=== PATIENT | female | born 1950 | race Two or more races ===

== ENCOUNTER 2024-05-31 09:34 | Outpatient (AMB) | payer MEDICARE, MEDICAID, SELFPAY ==
[2024-05-31 09:42] VITALS: BP 145/74; PULSE 86; RESP 19; TEMP 36.3; O2SAT 96; BMI 32.3
--- NOTE | 2024-05-31 09:42 | ORTHONT_ITS ---
Vital signs 05/31/24 09:42 Height 1.52 m Height Method Stated Weight 75.013 kg Weight Measurement Method Standing Scale BMI 32.3 BP 145/74 H Blood Pressure Source Automatic Cuff Blood Pressure Location Right Upper Arm Position Sitting Respiration 19 Pulse 86 Pulse Source Monitor Temp 97.3 F Temp Source Temporal Artery Scan Pulse Oximetry (%) 96 Oxygen Delivery Method Room Air Med/Allergies Allergies & Medications Allergies No Known Allergies Allergy (Verified 05/31/24 09:43) Medication Reconciliation Unobtainable 05/31/24 [History Confirmed 05/31/24] Subjective Visit Visit for: new patient and knee (RIGHT) Immunization / Flu Flu Vaccine in the Last 12 Months: Yes Flu Vaccine Exclusion Criteria: Already Received History of Present Illness Chief complaint: RIGHT KNEE PAIN Cheryl is a pleasant 73-year-old female who presents today for evaluation of her right knee. She had a left knee replacement recently and did well from that. She has tried multiple injections in the right knee as well as physical therapy and several anti-inflammatories. She has persistent pain. Personal History Red flag PMH: smoker Pain Pain level (0-10): 8 Pain duration: CONSTANT Pain location: inside (medial) and outside (lateral) Pain quality: sharp, dull and aching Pain timing: night, increases with activity and stairs Associated signs & symptoms: numbness Ambulatory data Ambulatory device: walker Treatments Improvement with previous injections: No Improvement with PT: No Improvement with NSAIDS: no Review of Systems Review of Systems: All systems negative unless otherwise noted in HPI. Exam Exam Patient is in no acute distress and is cooperative with the examination today. Breathing is nonlabored. Patient has a normal mood and affect. Bilateral extremities were evaluated and demonstrates sensation intact to light touch. Palpable pedal pulses are present. No significant edema is present. Bilateral hips were examined. The patient has no pain with log roll of the hips. Internal rotation to 30 degrees and external rotation to 30 degrees is painless. Negative FADIR. Left knee incision is clean dry and intact The right knee was also examined. The right knee is in [varus] alignment. Range of motion from [0-115] degrees. Knee is stable to varus and valgus as well as AP translation with <5mm. Patient has a [negative] McMurrays. There is [no] pain with patellofemoral compression and [no] crepitus noted. The knee is [tender] to palpation [medially]. X-rays from [place] [facility] reviewed today. This demonstrates complete joint space obliteration medially with osteophytes and varus deformity Assessment and Plan Problem List (1) Degenerative arthritis of knee, bilateral: Status: Acute Plan: Patient is a 73-year-old female with a right greater than left knee pain. She has Significant right knee pain and right knee arthritis. She has failed conservative treatment occluding multiple injections, formal physical therapy, and several anti-inflammatories. We thus thus discussed a right total knee replacement is a reasonable option. The pain is affecting her quality life and happiness The nature and purpose of the total knee replacement, alternative method(s) of treatment, the material risks involved, and the possibility of complications were fully explained to the patient. The patient does NOT have any of the following contraindications to TKA: - Active infection of the knee joint, OR - Active systemic bacteremia, OR - Active skin infection or open wound at surgical site, OR - Neuropathic arthritis, OR - Severe, rapidly progressive neurological disease, OR - Severe medical condition that makes risks of surgery outweigh the potential benefit The patient was told the most common risks and complications associated with a total knee replacement include, but are not limited to: blood clots in the leg, fatal pulmonary embolism, dislocation of the prosthesis, intraoperative and postoperative fractures of the femur or tibia, infection, failure of the prosthesis or grafting materials, complications from anesthesia, reactions to blood transfusions, postoperative leg length inequality, instability of the knee replacement, nerve damage or injury, vascular injury, delayed wound healing, infection, other injury or even . In addition, there are risks associated with anesthesia given during this operation. Also, the patient was told that after undergoing a total knee replacement there may still be persistent pain or disability. The patient was informed that the success of this operation in part depends upon the mechanical devices which are going to be implanted and that these devices can fail or malfunction, and may need to be repaired or replaced and there are no guarantees as to the longevity of this device or its parts and that it or its parts could fail prematurely. The patient was also notified that during the course of surgery, there may be a need to use bone graft from donors, and that any bone graft used will be carefully screened for communicable diseases, including AIDS, hepatitis, Jose-Creutzfeldt, or other diseases, but despite the screening procedures, there is a small chance that they could contract one of these diseases. Finally, the patient was asked to follow completely and fully with all advice and recommended treatments, and that recovery and ultimate outcome are affected by their compliance with recommended treatment. We discussed the risks, benefits and treatment alternatives, and the patient is interested in proceeding with surgery. We will try to set this up as expeditiously as possible. Advanced Care Planning Discussion Advance care planning discussed with:: patient Office Procedures GNS Level of Care Nursing/Assessment Patient Status: Initial/New Patient Nursing Assessment/Reassesment: Medication Reconciliation and Update PMH in EMR Coordination of Care: Complex Care and Chronic Disease 1-5, Education Complex Pt/Fam, Consent,records obtained, informed consent, 1 Ins Authorization, Lab and Imaging orders, Results/Orders obtained and Staff clarify orders Special Needs: Language special needs New Patient Charge New Patient Point Assignment: 1109 New Patient Point Charge: FUNERAL PRE ARRANGEMENT COUNSELOR Level 3 ([id number]) Past Medical History Past Medical History Have you ever been diagnosed with any of the following: Cardiology Problems Hypertension: Yes Respiratory Problems Smoking: Yes Smoking Exposure: Yes
== END 2024-05-31 10:02 | disposition home or self-care (01) ==
PROVIDERS: PCP Physician Assistant; Referring Provider Physician Assistant; Supervising Provider Orthopaedic Surgery Adult Reconstructive Orthopaedic Surgery; Visit Provider Orthopaedic Surgery Adult Reconstructive Orthopaedic Surgery
DX: M17.0 Bilateral primary osteoarthritis of knee (principal); M25.561 Pain in right knee; I10 Essential (primary) hypertension
CPT/HCPCS: 99203; G0463

== ENCOUNTER 2024-08-02 14:26 | Outpatient (AMB) | payer MEDICARE, MEDICAID, SELFPAY ==
[2024-08-02 14:57] VITALS: BP 126/76; PULSE 88; RESP 18; TEMP 36.4; O2SAT 96; BMI 31.8
--- NOTE | 2024-08-02 14:57 | PD.ORTHCLVIS ---
Vital signs 08/02/24 14:57 Height 1.52 m Height Method Stated Weight 73.737 kg Weight Measurement Method Standing Scale BMI 31.8 BP 126/76 Blood Pressure Source Automatic Cuff Blood Pressure Location Right Upper Arm Position Sitting Respiration 18 Pulse 88 Pulse Source Monitor Temp 97.6 F Temp Source Temporal Artery Scan Pulse Oximetry (%) 96 Oxygen Delivery Method Room Air Med/Allergies Allergies & Medications Allergies No Known Allergies Allergy (Verified 08/02/24 14:58) Medication Reconciliation Unobtainable 05/31/24 [History Confirmed 08/02/24] Exam Exam Patient is in no acute distress and is cooperative with the examination today. Breathing is nonlabored. Patient has a normal mood and affect. Bilateral extremities were evaluated and demonstrates sensation intact to light touch. Palpable pedal pulses are present. No significant edema is present. Bilateral hips were examined. The patient has no pain with log roll of the hips. Internal rotation to 30 degrees and external rotation to 30 degrees is painless. Negative FADIR. Left knee incision is clean dry and intact The right knee was also examined. The right knee is in [varus] alignment. Range of motion from [0-115] degrees. Knee is stable to varus and valgus as well as AP translation with <5mm. Patient has a [negative] McMurrays. There is [no] pain with patellofemoral compression and [no] crepitus noted. The knee is [tender] to palpation [medially]. X-rays from [place] [facility] reviewed today. This demonstrates complete joint space obliteration medially with osteophytes and varus deformity Assessment and Plan Problem List (1) Degenerative arthritis of knee, bilateral: Status: Acute Plan: Patient is a 73-year-old female with a right greater than left knee pain. She has Significant right knee pain and right knee arthritis. She has failed conservative treatment occluding multiple injections, formal physical therapy, and several anti-inflammatories. We thus thus discussed a right total knee replacement is a reasonable option. The pain is affecting her quality life and happiness The nature and purpose of the total knee replacement, alternative method(s) of treatment, the material risks involved, and the possibility of complications were fully explained to the patient. The patient does NOT have any of the following contraindications to TKA: - Active infection of the knee joint, OR - Active systemic bacteremia, OR - Active skin infection or open wound at surgical site, OR - Neuropathic arthritis, OR - Severe, rapidly progressive neurological disease, OR - Severe medical condition that makes risks of surgery outweigh the potential benefit The patient was told the most common risks and complications associated with a total knee replacement include, but are not limited to: blood clots in the leg, fatal pulmonary embolism, dislocation of the prosthesis, intraoperative and postoperative fractures of the femur or tibia, infection, failure of the prosthesis or grafting materials, complications from anesthesia, reactions to blood transfusions, postoperative leg length inequality, instability of the knee replacement, nerve damage or injury, vascular injury, delayed wound healing, infection, other injury or even . In addition, there are risks associated with anesthesia given during this operation. Also, the patient was told that after undergoing a total knee replacement there may still be persistent pain or disability. The patient was informed that the success of this operation in part depends upon the mechanical devices which are going to be implanted and that these devices can fail or malfunction, and may need to be repaired or replaced and there are no guarantees as to the longevity of this device or its parts and that it or its parts could fail prematurely. The patient was also notified that during the course of surgery, there may be a need to use bone graft from donors, and that any bone graft used will be carefully screened for communicable diseases, including AIDS, hepatitis, Jose-Creutzfeldt, or other diseases, but despite the screening procedures, there is a small chance that they could contract one of these diseases. Finally, the patient was asked to follow completely and fully with all advice and recommended treatments, and that recovery and ultimate outcome are affected by their compliance with recommended treatment. We discussed the risks, benefits and treatment alternatives, and the patient is interested in proceeding with surgery. We will try to set this up as expeditiously as possible. Advanced Care Planning Discussion Advance care planning discussed with:: patient Office Procedures GNS Level of Care Nursing/Assessment Patient Status: Established Patient Nursing Assessment/Reassesment: Medication Reconciliation, Update PMH in EMR and Vital Signs Coordination of Care: Complex Care and Chronic Disease 1-5, Education Complex Pt/Fam, Consent,records obtained, informed consent, Results/Orders obtained and Staff clarify orders Special Needs: Language special needs Established Patient Charge Established Patient Point Assignment: 95 Established Patient Point Charge: Level 3 (80-115) MD Intake Visit Data Collection New Patient or Established: Established Patient (seen at [facility] within 3 years) Reason for Visit:: PRE-OPT RT TKA Seen by Clinical Staff ONLY (RN/MA): No Verbal consent obtained for Telemed visit?: No Account Development Specialist Required: No PCP or OBGYN visit in last 3 months: Yes Hx Now: No Do You Feel Safe at Home: Yes Authorities Contacted: N/A Questionairres Past Medical History Past Medical History Have you ever been diagnosed with any of the following: Cardiology Problems Hypertension: Yes Respiratory Problems Smoking: Yes Smoking Exposure: Yes Subjective Visit Visit for: follow up visit and knee Immunization / Flu Flu Vaccine in the Last 12 Months: No Flu Vaccine Exclusion Criteria: No Exclusion Criteria History of Present Illness Chief complaint: PRE-OPT RT TKA Date of 1st surgery (if applicable): 08/08/24 Cheryl is a pleasant 73-year-old female who presents today for evaluation of her right knee. She had a left knee replacement recently and did well from that. She has tried multiple injections in the right knee as well as physical therapy and several anti-inflammatories. She has persistent pain. She is scheduled for surgery in a week Pain Pain level (0-10): 6 Pain duration: CONSTANT Pain location: inside (medial) Pain quality: sharp, dull and aching Pain timing: night, increases with activity and stairs Associated signs & symptoms: numbness, weakness and stiffness Ambulatory data Ambulatory device: walker Treatments Improvement with previous injections: No Improvement with PT: No Improvement with NSAIDS: n/a Review of Systems Review of Systems: All systems negative unless otherwise noted in HPI.
== END 2024-08-02 15:32 | disposition home or self-care (01) ==
LOC: HODSRG 14:26
PROVIDERS: PCP Physician Assistant; Referring Provider Physician Assistant; Supervising Provider Orthopaedic Surgery Adult Reconstructive Orthopaedic Surgery; Visit Provider Orthopaedic Surgery Adult Reconstructive Orthopaedic Surgery
DX: M17.0 Bilateral primary osteoarthritis of knee (principal); M25.562 Pain in left knee; M25.561 Pain in right knee; Z96.652 Presence of left artificial knee joint; I10 Essential (primary) hypertension
CPT/HCPCS: 73700; 99213; G0463

== ENCOUNTER → 2024-08-02 | Outpatient (CLI) | payer MEDICARE, MEDICAID, SELFPAY ==
--- NOTE | 2024-08-02 15:00 | XR_ITS ---
Examination: CT right lower extremity, without contrast. 2-D sagittal reconstructions. 2-D coronal reconstructions. 3-D reconstructions. Date and time of exam:August 02, 2024 1613 hours INDICATIONS: Right knee pain one year, diagnosis primary osteoarthritis CTDI: vol (mGy):11.2 DLP: (mGycm):813 Technique: Multiple 1.25 mm axial sections of the right lower extremity without intravenous contrast have been obtained. 2-D sagittal and coronal reconstructions have been obtained. 3-D reconstructions have been obtained. Low dose protocols were performed. One or more of the following dose reduction techniques were used; automated exposure control, adjustment of the mA and/or KV according to patient size, use of iterative reconstruction technique. Findings: Severe osteopenia Moderate narrowing right hip joint No fracture or dislocation No avascular necrosis Advanced narrowing medial joint space right knee Significant osteoarthritis patellofemoral and lateral joint spaces right knee No fracture IMPRESSION: Advanced tricompartment osteoarthritis right knee, including severe narrowing medial joint space
== END | disposition home or self-care (01) ==
PROVIDERS: Referring Provider Orthopaedic Surgery Adult Reconstructive Orthopaedic Surgery; Visit Provider Orthopaedic Surgery Adult Reconstructive Orthopaedic Surgery
DX: M17.11 Unilateral primary osteoarthritis, right knee (principal); M25.861 Other specified joint disorders, right knee
CPT/HCPCS: 73700

== ENCOUNTER 2024-08-08 05:49 | Day surgery (SDC) | payer MEDICARE, MEDICAID, SELFPAY ==
--- NOTE | 2024-08-04 06:00 | EKG_ITS ---
[facility] Test Date: 2024-08-04 Pat Name: DE HUDSON Department: Room: - Gender: Female Space Physicist: FREDI : 1950 Requested By: Bhavik Jc Order Number: [id number] Reading MD: Bhavik Jc Measurements Intervals [place] Rate: 78 P: 49 LA: 147 QRS: -53 QRSD: 148 T: 99 QT: 436 QTc: 497 Interpretive Statements SINUS RHYTHM MARKED LEFT AXIS DEVIATION LEFT BUNDLE BRANCH BLOCK No previous ECG available for comparison /[id number]
[2024-08-04 08:33] VITALS: BMI 28.0
[2024-08-04 09:53] LABS: Basophils # (Auto) 0.1 Thou/mm3 (0.0-0.2); Basophils % (Auto) 2 % (0-2.5); Eosinophils # (Auto) 0.8 Thou/mm3 (0.0-0.5); Eosinophils % (Auto) 11 % (0-10); Hematocrit 37.1 % (36.0-46.0); Hemoglobin 12.8 g/dL (12.0-16.0); Immature Granulocytes % (Auto) 0 % (0-0); Immature Granulocytes Auto 0.01 Thou/mm3 (0.00-0.00); Lymphocytes # (Auto) 2.5 Thou/mm3 (1.0-4.8); Lymphocytes % (Auto) 36 % (10-50); Mean Corpuscular HGB Conc 34.5 g/dl (31.0-37.0); Mean Corpuscular Hemoglobin 30.7 pg (25.0-35.0); Mean Corpuscular Volume 89 fL (80-100); Monocytes # (Auto) 0.7 Thou/mm3 (0.0-0.8); Monocytes % (Auto) 10 % (0-12); Neutrophils # (Auto) 2.9 Thou/mm3 (1.8-7.7); Neutrophils % (Auto) 41 % (37-80); Nucleated Red Blood Cell % 0 /100 WBC (0); Platelet Count 373 Thou/mm3 (140-440); RDW Standard Deviation 52.1 fL (36.4-46.3); Red Blood Count 4.17 Miln/mm3 (4.00-5.20); White Blood Count 7.1 Thou/mm3 (3.6-11.0)
[2024-08-04 10:09] LABS: INR 0.9 (0.9-1.3); Prothrombin Time 10.3 Seconds (9.0-12.2)
[2024-08-04 10:12] LABS: Alanine Aminotransferase 13 U/L (10-49); Albumin, Serum 4.8 gm/dL (3.4-4.8); Albumin/Globulin Ratio 1.7 (1.2-2.2); Alkaline Phosphatase 116 U/L (46-116); Anion Gap 8 (7-16); Aspartate Amino Transferase 15 U/L (0-34); BUN/Creatinine Ratio 14 Ratio (12-20); Bilirubin,Total 0.5 mg/dL (0.3-1.2); Blood Urea Nitrogen 11 mg/dL (9-23); Calcium 9.8 mg/dL (8.3-10.6); Calcium (Corrected) 9.8 mg/dL (8.5-10.1); Carbon Dioxide 27.2 mMol/L (20.0-31.0); Chloride 102 mMol/L (98-107); Creatinine (Component) 0.8 mg/dL (0.6-1.3); Estimated Creatinine Clearance 60.9 mL/min (>60); Globulin 2.9 gm/dL (2.3-3.5); Glucose 82 mg/dL (74-106); Osmolality,Calculated 272 (275-295); Potassium 3.4 mMol/L (3.4-5.1); Sodium 137 mMol/L (136-145); Total Protein 7.7 gm/dL (5.7-8.2); eGFR > 60 See Note
--- NOTE | 2024-08-04 15:03 | SUR.PREOP ---
Cardiac records reviewed with Dr Jc.
[2024-08-08] VITALS (20 sets, daily range): BP systolic 107–143; BP diastolic 52–86; PULSE 66–96; RESP 12–19; TEMP 36.2–36.7; O2SAT 95–100; BMI 27.9
[2024-08-08] MEDS: ACETAMINOPHEN 325 MG TABLET 650 MG PO (06:17)
[2024-08-08] MEDS: MELOXICAM 7.5 MG TABLET PO ×2 (06:18→20:04)
[2024-08-08] MEDS: PREGABALIN 75 MG CAPSULE PO (06:18)
[2024-08-08] MEDS: RINGERS LACTATED 1000 ML 1,000 ML 20 ML IV (06:19)
--- NOTE | 2024-08-08 09:07 | ESOP_ITS ---
Date of Procedure 08/08/24 Pre Op Diagnosis right knee osteoarthritis Post Op Diagnosis right knee osteoarthritis Procedure right total knee replacement Findings full thickness cartilage loss and osteophytes Procedure Description Indication: The patient is a 73 year old who has a long history of right knee pain. X-rays show degenerative arthritis involving the knee. Over the past several years the patient has had increasing pain, progressive limitation in function. He has failed conservative measures including activity modification, physical therapy, injections, anti-inflammatories, and assistive devices. After a lengthy discussion of the risks and benefits, the patient presents now for total knee replacement. The nature and purpose of the total knee replacement, alternative method(s) of treatment, the material risks involved, and the possibility of complications were fully explained to the patient. The patient was told the most common risks and complications associated with a total knee replacement include, but are not limited to blood clots in the leg, fatal pulmonary embolism, dislocation of the prosthesis, intraoperative and postoperative fractures of the femur or tibia, infection, failure of the prosthesis or grafting materials, complications from anesthesia, reactions to blood transfusions, postoperative leg length inequality, instability of the knee replacement, nerve damage or injury, vascular injury, delayed wound healing, infections, other injury or even . In addition, there are risks associated with anesthesia given during this operation, temporary or permanent numbness on the skin lateral to the incision can be a complication unique to total knee surgery, and kneeling can be painful after knee replacement surgery. Also, the patient was told that after undergoing a total knee replacement there may still be pain or disability. We discussed with the patient that we will be using a robot-assisted technology. We discussed that there is a possibility of converting to manual instrumentation. The patient was informed that the success of this operation in part depends upon the mechanical devices which are going to be implanted and that these devices can fail or malfunction, and may need to be repaired or replaced and there are no guarantees as to the longevity of this device or its part and that it or its parts could fail prematurely. Finally, the patient was asked to follow completely and fully with all advice and recommended treatments, and that recovery and ultimate outcome are affected by their compliance with recommended treatment. Surgical technique: Patient was marked and consented in the pre-operative area. The patient was brought to the operating room and placed on the operating table in a supine position. Prior to positioning, a timeout procedure was performed between the surgeon, the anesthesiologist, and the nursing staff where the patient and the operative side were identified and confirmed. After adequate general anesthetic was obtained, the right lower extremity was prepped and draped in the usual sterile fashion. A weight based dose of Cefazolin were administered within 1 hour prior to incision. The robot was preregistered and calirated before the incision. The extremity was exsanguinated with an esmarch badge and tourniquet inflated to 250mmHg. A midline incision was made. A median parapatellar arthrotomy was made. The patella was subluxed laterally. A medial release was performed to expose the medial tibia. His femoral and tibial pins were placed through an intra incisional manner for both cases. Every effort was made to ensure that the distalmost aspect of the pin was hung in the second cortex. The arrays were then tightened several times to ensure that it was fixed for the remainder of the case. Both femoral and tibial checkpoints were then placed. We then went through the registration process of the bone. We then assessed the knee deformity and attempted to correct it. We also used the robot to aid in judging laxity in both extension and flexion. Final based on laxity and alignment we changed the preoperative assessment to obtain proper proper implant positioning and to correct deformity. Attention was then placed to the tibia. We made a tibial cut using the robot ensuring that both the MCL and the patella tendon were protected with retractors. We then went to the femur and made the posterior cut followed by the anterior cut and the anterior chamfer. The bone was then removed and we made a distal femur cut and a posterior chamfer cut. We verified all cuts. A trial reduction was performed with a size [3] femoral component and a size 3 keeled tibial component. The patella tracked centrally, and no lateral retinacular release was necessary. The trial implants were removed. The arrays, pins, and checkpoints were all removed. We performed a verification that all pins were removed. The cut bone surfaces were lavaged. A size [3] right femoral component, a size 3 keeled tibial component were impacted into position. The knee was felt to be well balanced in the sagittal and coronal plane. The final 3x10 mm cruciate- substituting articular insert was impacted into the tibial tray. The knee was brought out to full extension, flexed up to 120 degrees. It was stable to varus and valgus stress and appropriately balanced in flexion and extension. The wounds were copiously irrigated following deflation of tourniquet. The medial retinaculum was reapproximated with #1 vicryl and quill. The subcutaneous tissues were closed with 0 and 2-0 interrupted Vicryl. The skin was closed with 3-0 Monofilament V loc suture. A sterile dressing was applied. The patient was transferred to a bed and brought to recovery in stable condition. The patient tolerated the procedure well. There were no intraoperative complications. Sponge and needle counts were correct times 2. As the attending surgeon, I attest I was present and performed the entire operation. Grafts/Implants Size 3 CR Femur Size 3 Tibia 10mm poly CS Anesthesia GETA Implants isabel triathlon Pathology / specimen None Pathology comment: none Estimated Blood Loss 150 Surgeon Richard Mariscal MD Surgical Staff Operation Date: 08/08/24 07:30 Case Staff Anesthesiologist: Bhavik Jc RNaccount manager sales representative: Jenna Live
--- NOTE | 2024-08-08 09:13 | XR_ITS ---
Examination: Right knee 2 views TECHNIQUE: AP lateral right knee 2 views Exam date and time: August 08, 2024 1003 hours INDICATIONS: Postop knee replacement FINDINGS: Total right knee replacement Satisfactory alignment Moderate osteopenia No fracture IMPRESSION: Total right knee arthroplasty with satisfactory alignment
--- NOTE | 2024-08-08 09:30 | SUR.PHASEI ---
0930 Patient arrived to recovery resting comfortably in [facility], sleeping and able to arouse with verbal prompting and then drifts back to sleeping, on oxygen 5L via nasal cannula, breathing unlabored, vital signs stable, denies pain dressing intact to right knee; prineo, abd, webril, agnes wraps, no bleeding noted, bilateral dorsalis pedis pulses present when palpated, patient has good circulation to right lower extremity; skin color normal for patient and warm to touch, lung sounds clear upon auscultation, report received from Tod HARP and Dr. Jc
--- NOTE | 2024-08-08 10:11 | SUR.PHASEI ---
1011 Telephone order read back received from Dr. Jc: Tylenol 500mg oral tab, Toradol 15mg via IVP, will place order in EMR and administer per MD order
[2024-08-08] MEDS: ONDANSETRON INJ 2 MG/ML INJ 2 ML 4 MG IV (10:25)
[2024-08-08] MEDS: KETOROLAC INJ 30 MG/ML VIAL 15 MG IVP (10:27)
--- NOTE | 2024-08-08 10:42 | SUR.PHASEI ---
1023 patient has episode of emesis 100ml yellow into emesis bag 1025 patient medicated per anesthesia order, Zofran 4mg via IV, will monitor 1042 patient taking sips of 7up, denies nausea
--- NOTE | 2024-08-08 10:48 | SUR.PHASEI ---
1047 Patient continues to be nausea, will speak to MD for additional nausea medication
--- NOTE | 2024-08-08 10:50 | SUR.PHASEI ---
1050 Verbal order read-back received from Dr. Mariscal, Reglan 10mg via IVP and Scopolamine 1mg 72hr patch, will place order in EMR and administer to patient per MD order
[2024-08-08] MEDS: METOCLOPRAMIDE INJ 5 MG/ML VIAL 2 ML 10 MG IVP (11:02)
[2024-08-08] MEDS: SCOPOLAMINE 1 MG TDSY TOP (11:02)
--- NOTE | 2024-08-08 11:15 | SUR.PHASEI ---
1115 Patient had episode of incontinence, pad changed, pericare provided, Purewick now in place to patient
--- NOTE | 2024-08-08 11:49 | SUR.PHASEI ---
1149 Report given to Jose Alberto HARP
--- NOTE | 2024-08-08 11:49 | SUR.PHASEI ---
report received from Brooke Beckford RN. pt eyes closed resting in bed. v/s stable. breathing unlabored on 12l oxymask.
--- NOTE | 2024-08-08 12:27 | SUR.PHASEI ---
1127 Report received from Jose Alberto HARP
--- NOTE | 2024-08-08 12:30 | SUR.PHASEII ---
[address] Mariscal patient condition, sleeping, requiring oxygen, patient shared she didn't sleep last night and she is very tired, Dr. Mariscal gave orders for patient to stay in hospital overnight for observation
--- NOTE | 2024-08-08 12:34 | SUR.PHASEII ---
1234 patients son notified that MD ordered for patient to stay in the hospital overnight, all questions answered for patients son
--- NOTE | 2024-08-08 12:45 | SUR.PHASEII ---
9800 Verbal order read-back received from Dr. Mariscal to restarted all patient home medication as patient take at home, medication verified with patient and MD
--- NOTE | 2024-08-08 13:28 | SUR.PHASEII ---
patient sitting up in bed eating soup, tolerating well
--- NOTE | 2024-08-08 13:50 | SUR.PHASEII ---
1345 Report given to Jai RN, patient sitting up in bed eating soup, falls asleep intermittently while eating, on oxygen 4L via nasal cannula, breathing unlabored, vital signs stable, denies pain, dressing intact; no bleeding noted, denies nausea 1350 Patient transported via bed with trapeze to room 364 without incident
[2024-08-08] MEDS: ACETAMINOPHEN 500 MG TABLET 1000 MG PO (17:32)
[2024-08-08] MEDS: BusPIRone HCL 5 MG TABLET 20 MG PO (20:03)
[2024-08-08] MEDS: oxyCODONE HCL 5 MG IR TAB 10 MG PO (20:04)
[2024-08-08] MEDS: AMITRIPTYLINE HCL 25 MG TABLET 50 MG PO (20:04)
[2024-08-08] MEDS: ASPIRIN EC 81 MG TABEC PO (20:04)
[2024-08-08] MEDS: MECLIZINE HCL 25 MG TABLET PO (20:05)
[2024-08-09] VITALS (7 sets, daily range): BP systolic 102–117; BP diastolic 59–65; PULSE 67–84; RESP 17–18; TEMP 36.2–36.6; O2SAT 93–96; BMI 13.0
[2024-08-09] MEDS: ACETAMINOPHEN 500 MG TABLET 1000 MG PO ×2 (05:36→12:09)
[2024-08-09] MEDS: oxyCODONE HCL 5 MG IR TAB 10 MG PO (08:20)
[2024-08-09] MEDS: ASPIRIN EC 81 MG TABEC PO (08:20)
[2024-08-09] MEDS: LOSARTAN POTASSIUM 25 MG TABLET 50 MG PO (08:20)
[2024-08-09] MEDS: hydroCHLOROthiazide 12.5 MG CAPSULE 25 MG PO (08:21)
[2024-08-09] MEDS: BusPIRone HCL 5 MG TABLET 20 MG PO (08:21)
[2024-08-09] MEDS: MECLIZINE HCL 25 MG TABLET PO (08:22)
[2024-08-09] MEDS: amLODIPine BESYLATE 5 MG TABLET 10 MG PO (08:22)
[2024-08-09] MEDS: PANTOPRAZOLE INJ 40 MG VIAL IV (08:22)
--- NOTE | 2024-08-09 10:47 | PC.SS ---
Initial assessment: patient is a 73 year old female here for surgery with Dr. Mariscal. Patient resides at home, alone. Patient confirmed home information. Patient assigned her son, Jovanni Ortega as her emergency contact. Patient informs she has a walker to assist with ambulation. Patient PCP is Dr. Marissa James. Patient pharmacy is [place], [place]. Patient plans to return home upon discharge, informs family to assist with home care. Patient informs her son is able to transport her home. No preferred HH agency if recommended.
--- NOTE | 2024-08-10 13:45 | ESPR_ITS ---
Documentation for date of: 08/10/24 POST ANESTHESIA NOTE: Patient had GETA and R adductor block for R TKA on 08/08/24. I just called and spoke with her on the phone via hydroelectric machinery mechanic and she reported having nausea but denied it lasting for more than 1 day and denied PO intolerance currently. She mentioned about some doctor appointment on and I educated her that if she has any appointments scheduled with any doctor, she should keep it, but she does not have any further follow up with me. Bhavik Jc MD Anesthesia Progress Note Progress Note Most recent Vital Signs: Last Vital Signs Temp 97.8 F 08/09/24 12:00 Pulse 74 08/09/24 12:00 Resp 17 08/09/24 12:00 BP 117/59 L 08/09/24 12:00 Pulse Ox 93 L 08/09/24 12:00 O2 Del Method Room Air 08/09/24 12:00 O2 Flow Rate 4 08/08/24 13:30
== END 2024-08-09 13:41 | disposition home health service (06) ==
LOC: S2EX 12:34 → S3NX 08-09 06:17
PROVIDERS: Anesthesiology; PCP Physician Assistant; Referring Provider Orthopaedic Surgery Adult Reconstructive Orthopaedic Surgery; Visit Provider Orthopaedic Surgery Adult Reconstructive Orthopaedic Surgery
PROC: (CPT 27447; principal; 2024-08-08 07:30)
DX: M17.11 Unilateral primary osteoarthritis, right knee (principal); Z01.810 Encounter for preprocedural cardiovascular examination
CPT/HCPCS: 27447; 20985; 36415; 73560; 80053; 85025; 85610; 85730; 87081; 93005; 97162; A4216; A4217; C1713; C1776; J0171; J0690; J1100; J1885; J2250; J2371; J2405; J2470; J2704; J2710; J2765; J2795; J3010; J3490; J7030; J7120; P9045; A4648; A4649; A9270; J1596; J1805

== ENCOUNTER 2024-08-23 08:22 | Outpatient (AMB) | payer MEDICARE, MEDICAID, SELFPAY ==
[2024-08-23 08:29] VITALS: BP 109/69; PULSE 90; RESP 18; TEMP 36.3; O2SAT 97; BMI 27.6
--- NOTE | 2024-08-23 08:29 | ORTHONT_ITS ---
Vital signs 08/23/24 08:29 Height 1.63 m Height Method Stated Weight 73.51 kg Weight Measurement Method Standing Scale BMI 27.6 BP 109/69 Blood Pressure Source Automatic Cuff Blood Pressure Location Left Upper Arm Position Sitting Respiration 18 Pulse 90 Pulse Source Monitor Temp 97.4 F Temp Source Temporal Artery Scan Pulse Oximetry (%) 97 Oxygen Delivery Method Room Air Med/Allergies Allergies & Medications Allergies acetaminophen (From [employer]) Allergy (Intermediate, Verified 08/23/24 08:29) Palpitations hydrocodone (From [employer]) Allergy (Intermediate, Verified 08/23/24 08:29) Palpitations Medication Reconciliation amitriptyline 50 mg tablet 50 mg PO HS 08/04/24 [History Confirmed 08/23/24] amlodipine 10 mg tablet 10 mg PO QDAY 08/04/24 [History Confirmed 08/23/24] buspirone 15 mg tablet 15 mg PO TID 08/04/24 [History Confirmed 08/23/24] buspirone 5 mg tablet 5 mg PO TID 08/04/24 [History Confirmed 08/23/24] calcium 600 mg-D3 20 mcg-magnesium 50 ov-Cd-hcmars-fili-boron tablet (Calcium 600-D3 Plus (mag-zinc)) 1 tab PO BID 08/04/24 [History Confirmed 08/23/24] hydrochlorothiazide 25 mg tablet 25 mg PO QAM 08/04/24 [History Confirmed 08/23/24] linaclotide 145 mcg capsule (Linzess) 145 mcg PO QDAY 08/04/24 [History Confirmed 08/23/24] losartan 50 mg tablet 50 mg PO QDAY 08/04/24 [History Confirmed 08/23/24] meclizine 25 mg tablet 25 mg PO BID 08/04/24 [History Confirmed 08/23/24] rosuvastatin 10 mg tablet 10 mg PO QDAY 08/04/24 [History Confirmed 08/23/24] acetaminophen 500 mg tablet (Acetaminophen Extra Strength) 1,000 mg (2 x 500 mg) PO Q6H PRN pain #90 tabs 08/08/24 [Rx Confirmed 08/23/24] aspirin 81 mg tablet,delayed release 81 mg PO BID #60 tabs 08/08/24 [Rx Confirmed 08/23/24] doxycycline hyclate 100 mg tablet 100 mg PO BID #14 tabs 08/08/24 [Rx Confirmed 08/23/24] gabapentin 300 mg capsule 300 mg PO .qhs #30 caps 08/08/24 [Rx Confirmed 08/23/24] oxycodone 5 mg tablet 5 mg PO Q6H PRN pain #28 tabs 08/08/24 [Rx Confirmed 08/23/24] sennosides 8.6 mg-docusate sodium 50 mg tablet (Senna-S) 1 tab-cap PO QDAY #30 tabs 08/08/24 [Rx Confirmed 08/23/24] cyclobenzaprine 5 mg tablet 5 mg PO qhs #30 tabs 08/23/24 [Rx] oxycodone 5 mg tablet 5 mg PO Q6HR PRN pain 7 days #28 tabs 08/23/24 [Rx] Exam Exam Patient is in no acute distress and is cooperative with the examination today. Patient has a normal mood and affect. Breathing is nonlabored. In no respiratory distress. Bilateral extremities were evaluated and demonstrates sensation intact to light touch. Palpable pedal pulses are present. No significant edema is present. Right knee incision is clean dry and intact. Range of motion is 0 to 105 degrees Assessment and Plan Problem List (1) History of total right knee replacement: Status: Acute Plan: Patient is a 73-year-old female doing well status post right total knee replacement. We will see her in 4 weeks. She is to start outpatient physical therapy. We will get x-rays for the next visit Advanced Care Planning Discussion Advance care planning discussed with:: patient Office Procedures GNS Level of Care Nursing/Assessment Patient Status: Established Patient Nursing Assessment/Reassesment: Medication Reconciliation, Update PMH in EMR and Vital Signs Coordination of Care: Complex Care and Chronic Disease 1-5, Education Complex Pt/Fam, Consent,records obtained, informed consent, Results/Orders obtained and Staff clarify orders Established Patient Charge Established Patient Point Assignment: 95 Established Patient Point Charge: EP Level 3 (80-115) MA Intake Visit Data Collection New Patient or Established: Established Patient (seen at [facility] within 3 years) Reason for Visit:: KNEE TKA F/U Seen by Clinical Staff ONLY (RN/MA): No Director Diversity Required: Yes PCP or OBGYN visit in last 3 months: Yes Hx Now: No Do You Feel Safe at Home: Yes Authorities Contacted: N/A Questionairres Past Medical History Past Medical History Have you ever been diagnosed with any of the following: Neurological Problems Seizures: No Cardiology Problems Hypercholesterolemia: Yes Congestive Heart Failure: No Edema: Yes (right leg) Hypertension: Yes Varicose Veins: Yes Respiratory Problems Chronic Obstructive Pulmonary Disease (COPD): No Smoking: Yes Smoking Exposure: Yes Stomache/Intestinal Problems Hemorrhoids: Yes Genital/Urinary Problems Renal Disease: No Reproductive Problems Previous Pregnancies: Yes Musculoskeletal Problems Arthritis: Yes Osteoporosis: Yes (osteopenia) Head,Eye,Nose,Throat Problems Cataracts: Yes (bilateral) Endocrine Problems Diabetes Mellitus Type 1: No Diabetes Mellitus Type 2: No Psychologic Problems Depression: Yes Anxiety: Yes Other Problems Hospitalization: No Shingles: No Blood Transfusions: No Blood Transfusion Reaction: No Anesthesia Reactions: No Chicken Pox: Yes Measles: Yes Cancer: No Surgical History Hysterectomy: Yes Subjective Visit Visit for: follow up visit and knee (TKA) Immunization / Flu Flu Vaccine in the Last 12 Months: No Flu Vaccine Exclusion Criteria: No Exclusion Criteria History of Present Illness Chief complaint: Right total knee replacement Patient is 2 weeks status post right total knee replacement. She is using a walker. She is doing well. Pain Pain level (0-10): 7 Pain duration: CONSTANT Pain location: inside (medial), outside (lateral), anterior and posterior Pain quality: sharp, dull, aching and burning Pain timing: increases with activity Ambulatory data Ambulatory device: walker Treatments Improvement with previous injections: No Improvement with PT: No Improvement with NSAIDS: no Review of Systems Review of Systems: All systems negative unless otherwise noted in HPI.
== END 2024-08-23 08:53 | disposition home or self-care (01) ==
LOC: HODSRG 08:22
PROVIDERS: PCP Physician Assistant; Referring Provider Physician Assistant; Supervising Provider Orthopaedic Surgery Adult Reconstructive Orthopaedic Surgery; Visit Provider Orthopaedic Surgery Adult Reconstructive Orthopaedic Surgery
DX: Z96.651 Presence of right artificial knee joint (principal); I10 Essential (primary) hypertension
CPT/HCPCS: 99213; G0463

== ENCOUNTER 2024-09-20 08:47 | Outpatient (AMB) | payer MEDICARE, MEDICAID, SELFPAY ==
[2024-09-20 09:25] VITALS: BP 121/76; PULSE 91; RESP 18; TEMP 36.8; O2SAT 97; BMI 27.5
--- NOTE | 2024-09-20 09:25 | PD.ORTHCLVIS ---
Vital signs 09/20/24 09:25 Height 1.63 m Height Method Stated Weight 73.113 kg Weight Measurement Method Standing Scale BMI 27.5 BP 121/76 Blood Pressure Source Automatic Cuff Blood Pressure Location Left Upper Arm Position Sitting Respiration 18 Pulse 91 Pulse Source Monitor Temp 98.3 F Temp Source Temporal Artery Scan Pulse Oximetry (%) 97 Oxygen Delivery Method Room Air Med/Allergies Allergies & Medications Allergies acetaminophen (From [employer]) Allergy (Intermediate, Verified 09/20/24 09:26) Palpitations hydrocodone (From [employer]) Allergy (Intermediate, Verified 09/20/24 09:26) Palpitations Medication Reconciliation amitriptyline 50 mg tablet 50 mg PO HS 08/04/24 [History Confirmed 09/20/24] amlodipine 10 mg tablet 10 mg PO QDAY 08/04/24 [History Confirmed 09/20/24] buspirone 15 mg tablet 15 mg PO TID 08/04/24 [History Confirmed 09/20/24] buspirone 5 mg tablet 5 mg PO TID 08/04/24 [History Confirmed 09/20/24] calcium 600 mg-D3 20 mcg-magnesium 50 vp-Ip-lkrpvf-fili-boron tablet (Calcium 600-D3 Plus (mag-zinc)) 1 tab PO BID 08/04/24 [History Confirmed 09/20/24] hydrochlorothiazide 25 mg tablet 25 mg PO QAM 08/04/24 [History Confirmed 09/20/24] linaclotide 145 mcg capsule (Linzess) 145 mcg PO QDAY 08/04/24 [History Confirmed 09/20/24] losartan 50 mg tablet 50 mg PO QDAY 08/04/24 [History Confirmed 09/20/24] meclizine 25 mg tablet 25 mg PO BID 08/04/24 [History Confirmed 09/20/24] rosuvastatin 10 mg tablet 10 mg PO QDAY 08/04/24 [History Confirmed 09/20/24] acetaminophen 500 mg tablet (Acetaminophen Extra Strength) 1,000 mg (2 x 500 mg) PO Q6H PRN pain #90 tabs 08/08/24 [Rx Confirmed 09/20/24] aspirin 81 mg tablet,delayed release 81 mg PO BID #60 tabs 08/08/24 [Rx Confirmed 09/20/24] doxycycline hyclate 100 mg tablet 100 mg PO BID #14 tabs 08/08/24 [Rx Confirmed 09/20/24] gabapentin 300 mg capsule 300 mg PO .qhs #30 caps 08/08/24 [Rx Confirmed 09/20/24] oxycodone 5 mg tablet 5 mg PO Q6H PRN pain #28 tabs 08/08/24 [Rx Confirmed 09/20/24] sennosides 8.6 mg-docusate sodium 50 mg tablet (Senna-S) 1 tab-cap PO QDAY #30 tabs 08/08/24 [Rx Confirmed 09/20/24] cyclobenzaprine 5 mg tablet 5 mg PO qhs #30 tabs 09/20/24 [Rx] pregabalin 75 mg capsule 75 mg PO BID #30 caps 09/20/24 [Rx] Exam Exam Patient is in no acute distress and is cooperative with the examination today. Patient has a normal mood and affect. Breathing is nonlabored. In no respiratory distress. Bilateral extremities were evaluated and demonstrates sensation intact to light touch. Palpable pedal pulses are present. No significant edema is present. Right knee incision is clean dry and intact. Range of motion is 0 to 105 degrees Assessment and Plan Problem List (1) History of total right knee replacement: Status: Acute Plan: Patient is a 73-year-old female doing well status post right total knee replacement. He is doing with outpatient physical therapy. She reports a lot of numbness and tingling adjacent to the incision. [facility] from [facility] look [facility] Advanced Care Planning Discussion Advance care planning discussed with:: patient Office Procedures GNS Level of Care Nursing/Assessment Patient Status: Established Patient Nursing Assessment/Reassesment: Medication Reconciliation, Update PMH in EMR and Vital Signs Coordination of Care: Complex Care and Chronic Disease 1-5, Education Complex Pt/Fam, Consent,records obtained, informed consent, Results/Orders obtained and Staff clarify orders Special Needs: Language special needs Established Patient Charge Established Patient Point Assignment: 95 Established Patient Point Charge: EP Level 3 (80-115) MA Intake Visit Data Collection New Patient or Established: Established Patient (seen at [facility] within 3 years) Reason for Visit:: POST OP RIGHT TKA Seen by Clinical Staff ONLY (RN/MA): No 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: 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 PCP or OBGYN visit in last 3 months: Yes Hx Now: No Do You Feel Safe at Home: Yes Authorities Contacted: N/A Questionairres Past Medical History Past Medical History Have you ever been diagnosed with any of the following: Neurological Problems Seizures: No Cardiology Problems Hypercholesterolemia: Yes Congestive Heart Failure: No Edema: Yes (right leg) Hypertension: Yes Varicose Veins: Yes Respiratory Problems Chronic Obstructive Pulmonary Disease (COPD): No Smoking: Yes Smoking Exposure: Yes Stomache/Intestinal Problems Hemorrhoids: Yes Genital/Urinary Problems Renal Disease: No Reproductive Problems Previous Pregnancies: Yes Musculoskeletal Problems Arthritis: Yes Osteoporosis: Yes (osteopenia) Head,Eye,Nose,Throat Problems Cataracts: Yes (bilateral) Endocrine Problems Diabetes Mellitus Type 1: No Diabetes Mellitus Type 2: No Psychologic Problems Depression: Yes Anxiety: Yes Other Problems Hospitalization: No Shingles: No Blood Transfusions: No Blood Transfusion Reaction: No Anesthesia Reactions: No Chicken Pox: Yes Measles: Yes Cancer: No Surgical History Hysterectomy: Yes Subjective Visit Visit for: follow up visit, post op #2 and knee (RIGHT) Immunization / Flu Flu Vaccine in the Last 12 Months: No Flu Vaccine Exclusion Criteria: No Exclusion Criteria History of Present Illness Chief complaint: Right total knee replacement Patient is 5 weeks status post right total knee replacement. She is using a walker. She is doing well. Pain Pain level (0-10): 6 Pain duration: ALL DAY Pain location: groin, inside (medial), outside (lateral) and anterior Pain quality: aching and electric Pain timing: night, increases with activity and stairs Ambulatory data Ambulatory device: walker Treatments Improvement with previous injections: No Improvement with PT: No Improvement with NSAIDS: no Review of Systems Review of Systems: All systems negative unless otherwise noted in HPI.
== END 2024-09-20 09:38 | disposition home or self-care (01) ==
LOC: HODSRG 08:47
PROVIDERS: PCP Physician Assistant; Referring Provider Physician Assistant; Supervising Provider Orthopaedic Surgery Adult Reconstructive Orthopaedic Surgery; Visit Provider Orthopaedic Surgery Adult Reconstructive Orthopaedic Surgery
DX: Z96.651 Presence of right artificial knee joint (principal); R20.0 Anesthesia of skin; R20.2 Paresthesia of skin; I10 Essential (primary) hypertension; E78.00 Pure hypercholesterolemia, unspecified
CPT/HCPCS: 99213; G0463

== ENCOUNTER 2024-11-08 09:21 | Outpatient (AMB) | payer MEDICARE, MEDICAID, SELFPAY ==
[2024-11-08 09:43] VITALS: BP 119/74; PULSE 86; RESP 17; TEMP 36.8; O2SAT 94; BMI 27.8
--- NOTE | 2024-11-08 09:43 | PD.ORTHCLVIS ---
Vital signs 11/08/24 09:43 Height 1.63 m Height Method Stated Weight 74.021 kg Weight Measurement Method Standing Scale BMI 27.8 BP 119/74 Blood Pressure Source Automatic Cuff Blood Pressure Location Right Upper Arm Position Sitting Respiration 17 Pulse 86 Pulse Source Monitor Temp 98.3 F Temp Source Temporal Artery Scan Pulse Oximetry (%) 94 L Oxygen Delivery Method Room Air Med/Allergies Allergies & Medications Allergies acetaminophen (From [employer]) Allergy (Intermediate, Verified 11/08/24 09:44) Palpitations hydrocodone (From [employer]) Allergy (Intermediate, Verified 11/08/24 09:44) Palpitations Medication Reconciliation amitriptyline 50 mg tablet 50 mg PO HS 08/04/24 [History Confirmed 11/08/24] amlodipine 10 mg tablet 10 mg PO QDAY 08/04/24 [History Confirmed 11/08/24] buspirone 15 mg tablet 15 mg PO TID 08/04/24 [History Confirmed 11/08/24] buspirone 5 mg tablet 5 mg PO TID 08/04/24 [History Confirmed 11/08/24] calcium 600 mg-D3 20 mcg-magnesium 50 aj-Uz-aabhro-fili-boron tablet (Calcium 600-D3 Plus (mag-zinc)) 1 tab PO BID 08/04/24 [History Confirmed 11/08/24] hydrochlorothiazide 25 mg tablet 25 mg PO QAM 08/04/24 [History Confirmed 11/08/24] linaclotide 145 mcg capsule (Linzess) 145 mcg PO QDAY 08/04/24 [History Confirmed 11/08/24] losartan 50 mg tablet 50 mg PO QDAY 08/04/24 [History Confirmed 11/08/24] meclizine 25 mg tablet 25 mg PO BID 08/04/24 [History Confirmed 11/08/24] rosuvastatin 10 mg tablet 10 mg PO QDAY 08/04/24 [History Confirmed 11/08/24] acetaminophen 500 mg tablet (Acetaminophen Extra Strength) 1,000 mg (2 x 500 mg) PO Q6H PRN pain #90 tabs 08/08/24 [Rx Confirmed 11/08/24] aspirin 81 mg tablet,delayed release 81 mg PO BID #60 tabs 08/08/24 [Rx Confirmed 11/08/24] doxycycline hyclate 100 mg tablet 100 mg PO BID #14 tabs 08/08/24 [Rx Confirmed 11/08/24] gabapentin 300 mg capsule 300 mg PO .qhs #30 caps 08/08/24 [Rx Confirmed 11/08/24] oxycodone 5 mg tablet 5 mg PO Q6H PRN pain #28 tabs 08/08/24 [Rx Confirmed 11/08/24] sennosides 8.6 mg-docusate sodium 50 mg tablet (Senna-S) 1 tab-cap PO QDAY #30 tabs 08/08/24 [Rx Confirmed 11/08/24] cyclobenzaprine 5 mg tablet 5 mg PO qhs #30 tabs 09/20/24 [Rx Confirmed 11/08/24] pregabalin 75 mg capsule 75 mg PO BID #30 caps 09/20/24 [Rx Confirmed 11/08/24] Exam Exam Patient is in no acute distress and is cooperative with the examination today. Patient has a normal mood and affect. Breathing is nonlabored. In no respiratory distress. Bilateral extremities were evaluated and demonstrates sensation intact to light touch. Palpable pedal pulses are present. No significant edema is present. Right knee incision is clean dry and intact. Range of motion is 0 to 105 degrees Assessment and Plan Problem List (1) History of total right knee replacement: Status: Acute Plan: Patient is a 73-year-old female doing well status post right total knee replacement. He is doing with outpatient physical therapy. She reports a lot of numbness and tingling adjacent to the incision. She is doing well and reports minimal pain Advanced Care Planning Discussion Advance care planning discussed with:: patient Office Procedures GNS Level of Care Nursing/Assessment Patient Status: Established Patient Nursing Assessment/Reassesment: Medication Reconciliation and Update PMH in EMR Coordination of Care: Complex Care and Chronic Disease 1-5, Consent,records obtained, informed consent, Education Simp Pt/Fam, Results/Orders obtained and Staff clarify orders Special Needs: Language special needs ([employer]OL[employer] ) Established Patient Charge Established Patient Point Assignment: 75 Established Patient Point Charge: EP Level 2 (40-75) MA Intake Visit Data Collection New Patient or Established: Established Patient (seen at [facility] within 3 years) Reason for Visit:: PO RT TKA Seen by Clinical Staff ONLY (RN/MA): No Gel Coater Required: Yes PCP or OBGYN visit in last 3 months: Yes Hx Now: No Do You Feel Safe at Home: Yes Authorities Contacted: N/A Questionairres Past Medical History Past Medical History Have you ever been diagnosed with any of the following: Neurological Problems Seizures: No Cardiology Problems Hypercholesterolemia: Yes Congestive Heart Failure: No Edema: Yes (right leg) Hypertension: Yes Varicose Veins: Yes Respiratory Problems Chronic Obstructive Pulmonary Disease (COPD): No Smoking: Yes Smoking Cessation Counseling: No Smoking Exposure: Yes Tobacco Use: Yes Stomache/Intestinal Problems Hemorrhoids: Yes Genital/Urinary Problems Renal Disease: No Reproductive Problems Previous Pregnancies: Yes Musculoskeletal Problems Arthritis: Yes Osteoporosis: Yes (osteopenia) Head,Eye,Nose,Throat Problems Cataracts: Yes (bilateral) Endocrine Problems Diabetes Mellitus Type 1: No Diabetes Mellitus Type 2: No Psychologic Problems Depression: Yes Anxiety: Yes Other Problems Hospitalization: No Shingles: No Blood Transfusions: No Blood Transfusion Reaction: No Anesthesia Reactions: No Chicken Pox: Yes Measles: Yes Cancer: No Surgical History Hysterectomy: Yes Subjective Visit Visit for: follow up visit and post op #2 (RT TKA) Immunization / Flu Flu Vaccine in the Last 12 Months: Yes Flu Vaccine Exclusion Criteria: Already Received History of Present Illness Chief complaint: Right total knee replacement Patient is 12 weeks status post right total knee replacement. She is using a cane and reports the pain is significantly improved Personal History Red flag PMH: smoker Pain Pain level (0-10): 0 Pain duration: ALL DAY Pain location: other (specify) (NONE) Pain quality: other (specify) (NONE) Pain timing: night and increases with activity Associated signs & symptoms: numbness Ambulatory data Ambulatory device: cane Treatments Number of previous injections: 0 Improvement with previous injections: No Number of Physical Therapy sessions: 0 Improvement with PT: No Improvement with NSAIDS: n/a Review of Systems Review of Systems: All systems negative unless otherwise noted in HPI.
== END 2024-11-08 09:53 | disposition home or self-care (01) ==
LOC: HODSRG 09:21
PROVIDERS: PCP Physician Assistant; Referring Provider Physician Assistant; Supervising Provider Orthopaedic Surgery Adult Reconstructive Orthopaedic Surgery; Visit Provider Orthopaedic Surgery Adult Reconstructive Orthopaedic Surgery
DX: Z96.651 Presence of right artificial knee joint (principal); R20.0 Anesthesia of skin; R20.2 Paresthesia of skin
CPT/HCPCS: 99212; G0463